=== PATIENT | female | born 1995 | race Caucasian/White ===

== ENCOUNTER 2018-06-13 07:54 | Emergency (ER) | payer OTHER ==
--- NOTE | 2018-06-13 08:06 | ED ---
Upper Extremity Pain - HPI Summary HPI Summary: Patient is a 23-year-old female who presents emergency department for a ring stuck on her right ring finger. Patient states that she typically wears ring on her left hand which to her right hand last and was unable to remove ring. Patient's significant other is a nurse and he tried numerous medications and using straightening 3 times without success, as well as ice and elevation. Patient presents today requesting help bring cut of her finger. She denies numbness, tingling or weakness. Symptoms are mild in severity. Touching affected area makes symptoms worse. Makes symptoms better. - History of Current Complaint Chief Complaint: EDGeneral Stated Complaint: RING STUCK ON FINGER Time Seen by Provider: 06/13/18 08:04 Hx Obtained From: Patient - Allergies/Home Medications Allergies/Adverse Reactions: Allergies Allergy/AdvReac Type Severity Reaction Status Date / Time No Known Allergies Allergy Verified 06/13/18 07:59 PMH/Surg Hx/FS Hx/Imm Hx Previously Healthy: Yes Infectious Disease History: No Infectious Disease History: Denies: Traveled Outside the [place] in Last 30 Days - Family History Known Family History: Positive: Non-Contributory - Social History Occupation: Employed Full-time Lives: With Family Review of Systems Positive: Other - Swelling and pain to right 4th digit of hand Negative: Weakness, Paresthesia, Numbness All Other Systems Reviewed And Are Negative: Yes Physical Exam Triage Information Reviewed: Yes Vital Signs On Initial Exam: Initial Vitals Temp Pulse Resp BP Pulse Ox 98.0 F 106 20 130/92 100 06/13/18 07:57 06/13/18 07:57 06/13/18 07:57 06/13/18 07:57 06/13/18 07:57 Vital Signs Reviewed: Yes Appearance: Positive: Well-Appearing - Pt. sitting on bed in NAD. Appears anxious. present Head/Face: Positive: Normal Head/Face Inspection Eyes: Positive: Normal, EOMI Neck: Positive: Supple Musculoskeletal: Positive: Other - Significant edema noted to the right 4th digit of right hand. Gold ring very tight at base. Brisk capillary refill. Neurological: Positive: Normal, CN Intact II-III Psychiatric: Positive: Affect/Mood Appropriate Procedures - Procedure Summary Procedure Summary: Ring was cut from pt.'s 4th finger of hand with ring cutter per pt.'s request. Pt. tolerated well. Diagnostics - Vital Signs Vital Signs Temp Pulse Resp BP Pulse Ox 06/13/18 07:57 98.0 F 106 20 130/92 100 - Laboratory Lab Statement: Any lab studies that have been ordered have been reviewed, and results considered in the medical decision making process. Course/Dx - Course Course Of Treatment: Pt. presenting for ringing stuck on right hand that was removed as noted above. Patient discharged home stable. Advised to continue ice and elevation and Tylenol or Motrin for pain as directed. Patient understands and agrees with plan. - Diagnoses Differential Diagnosis/HQI/PQRI: Positive: Contusion, Strain, Sprain Provider Diagnoses: Tight ring on finger Discharge - Sign-Out/Discharge Documenting (check all that apply): Patient Departure - Discharge Plan Condition: Improved Disposition: HOME Referrals: Ashlee Albarado DO [Primary Care Provider] - Additional Instructions: Ice and elevate finger intermittently to help with pain and swelling Can take tylenol or motrin for pain as directed Return to ER if symptoms change or worsen - Billing Disposition and Condition Condition: IMPROVED Disposition: Home
[2018-06-13 09:23] VITALS: BP 129/76
== END 2018-06-13 09:15 | disposition home or self-care (01) ==
LOC: ED 07:54
DX: S60.444A External constriction of right ring finger, initial encounter (principal); W49.04XA Ring or other jewelry causing external constriction, initial encounter; Y92.9 Unspecified place or not applicable
CPT/HCPCS: 99281